=== PATIENT | female | born 1950 | race Caucasian/White ===

== ENCOUNTER → 2016-10-11 | Outpatient (CLI) | payer MEDICARE, BC | LOC: MAMO 10-10 13:00 | DX: Z12.31 Encounter for screening mammogram for malignant neoplasm of breast (principal) | CPT/HCPCS: G0202 ==

== ENCOUNTER → 2020-11-26 | Outpatient (CLI) | payer MEDICARE, BC | LOC: MAMO 10-20 11:30 | DX: Z12.31 Encounter for screening mammogram for malignant neoplasm of breast (principal) | CPT/HCPCS: 77063; 77067 ==

== ENCOUNTER → 2021-10-28 | Day surgery (SDC) | payer MEDICARE, BC ==
[~2021-10-28] MED LIST: ARTHRITIS PAIN650 MG PO; ASPIRIN81 MG PO; CALCIUM + D SO1 EACH PO; COLACE100 MG PO; COMBIGAN EYE DRO5 ML EYEBOTH; DAILY VALUE1 EACH PO; MECLIZINE HCL25 M1 PO; METOPROLOL SUCC25 MG PO; PEPCID40 MG PO; ZOCOR20 MG PO
== END | disposition home or self-care (01) ==
LOC: OR 06:42
DX: D12.0 Benign neoplasm of cecum (principal); I10 Essential (primary) hypertension; I49.1 Atrial premature depolarization; E78.5 Hyperlipidemia, unspecified; K21.9 Gastro-esophageal reflux disease without esophagitis; R42 Dizziness and giddiness; Z79.82 Long term (current) use of aspirin; Z79.899 Other long term (current) drug therapy
CPT/HCPCS: J2704; J7040